=== PATIENT | male | born 1950 | race Caucasian/White ===

== ENCOUNTER 2017-01-19 19:00 | Emergency (ER) | payer MEDICARE, BC ==
[2017-01-19 19:27] VITALS: BP 150/101
[2017-01-19] MEDS ORDERED: HYDROmorphone 0.5 MG/0.5 ML Syringe IVPUSH ONE (20:00)
[2017-01-19] MEDS ORDERED: Sodium Chloride 0.9% 10 ML Syringe FLUSH PRN (20:00)
[2017-01-19] MEDS ORDERED: Ondansetron 4 MG/2 ML SDV IVPUSH ONE (20:00)
[2017-01-19] MEDS ORDERED: Sodium Chloride 0.9% 1,000 ML IV ONE (20:03)
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
[2017-01-19] MEDS ORDERED: Albuterol 6.7 GM Inhaler INH ONE (21:00)
[2017-01-19] MEDS ORDERED: Sodium Chloride 0.9% 10 ML Syringe FLUSH ONE (21:34)
[2017-01-19] MEDS ORDERED: Iopamidol 612 MG/ML 150 ML Bottle IVPUSH ONE (21:34)
[2017-01-19] MEDS ORDERED: Diatrizoate Meglumine/Diatrizoate Sodium 37% 120 ML Bottle PO ONE (21:34)
[2017-01-19] MEDS ORDERED: cefTRIAXone 1 GM, Lidocaine 1% 2.1 ML IM SCH ×2 (22:15)
--- NOTE | 2017-01-20 09:59 | CT ---
CT abdomen and pelvis Technique: Multiple axial sections were obtained from above the dome of the diaphragm inferiorly through the pubic symphysis. Intravenous and oral contrast was utilized. Comparison: Previous CT abdomen and pelvis exam of 06/02/15. Findings: Visualized lung bases are clear. Small hiatal hernia is seen slightly increased in size from prior CT exam. Fatty infiltration is seen within the liver which is slightly more prominent than on previous exam. Spleen size is normal. Adrenal glands show no nodule. Kidneys show symmetric contrast enhancement. Cyst noted within the left kidney measuring 1.6 cm in size which is stable. Cyst noted within the right kidney measuring approximately 2.0 cm in size which is also stable. Aorta shows atherosclerotic change which continues into the iliac vessels. No aneurysm is seen. No retroperitoneal adenopathy or mesenteric abnormalities are seen. No pelvic mass or adenopathy is seen. Radiation implant seeds are seen within the prostate gland. Bladder is slightly thick-walled which likely is due to previous radiation treatment. Slightly prominent loops of jejunum seen with questionable bowel wall thickening. Delayed images show contrast within the distal ureters and within the bladder. Diffuse degenerative change seen within the spine with vacuum phenomena seen within the L2-L3 through L5-S1 discs. Impression: 1. Questionable bowel wall thickening within loops of jejunum. Jejunum is also slightly prominent in size either due to ileus or representing hypertonic effect of contrast. Mild enteritis is possible if patient has correlating symptoms. 2. Other incidental findings as noted above. Nothing acute is otherwise seen. Diagnostic code #3 Agree with preliminary report issued by [email or web address] (preliminary [facility] report dictated on 01/19/17, 10:54 PM Central Time)
== END 2017-01-19 22:53 | disposition home or self-care (01) ==
LOC: JD.ED 19:00
DX: K56.7 Ileus, unspecified (principal); N39.0 Urinary tract infection, site not specified; E78.00 Pure hypercholesterolemia, unspecified; I10 Essential (primary) hypertension; J45.909 Unspecified asthma, uncomplicated; J44.9 Chronic obstructive pulmonary disease, unspecified; E66.9 Obesity, unspecified; M19.90 Unspecified osteoarthritis, unspecified site; F41.9 Anxiety disorder, unspecified; F32.9 Major depressive disorder, single episode, unspecified; F17.210 Nicotine dependence, cigarettes, uncomplicated; Z79.82 Long term (current) use of aspirin; Z79.899 Other long term (current) drug therapy; Z95.1 Presence of aortocoronary bypass graft; Z98.84 Bariatric surgery status
CPT/HCPCS: 36415; 74177; 81001; 83690; 85610; 85730; 86140; 87086; 94664; 96361; 96372; 96374; 96375; 99284; A9270; J0696; J1170; J2405; J7040; J7050; Q9963; Q9967